=== PATIENT | female | born 1990 | race African-American/Black ===

== ENCOUNTER 2016-03-30 14:35 | Emergency (ER) | payer OTHER ==
[~2016-03-30] VITALS: Ht 152.4 cm; Wt 47.0 kg
[2016-03-30 15:53] LABS: HEMATOCRIT 41.5 % (36.0-46.0); MCH 29.5 PG (29.0-34.0); MCHC 34.9 G/DL (30.0-36.0); MCV 84.5 FL (83-99); MEAN PLAT.VOLUME 11.3 uM^3 (9.5-12.4); PLATELET COUNT 251 K/uL (156-360); RBC DIS.WIDTH-CV 14.5 % (11.8-14.6); RBC DIS.WIDTH-SD 44.3 % (39-53); RED BLOOD COUNT 4.91 M/uL (3.80-5.20); WHITE BLOOD COUNT 5.9 K/uL (4.1-10.2)
[2016-03-30 16:02] LABS: CHLORIDE 109 mEq/L (99-109); POTASSIUM 3.6 mEq/L (3.7-5.4); SODIUM 140 mEq/L (136-147)
[2016-03-30 16:04] LABS: GLUCOSE 96 mg/dL (70-99)
[2016-03-30 16:05] LABS: ANION GAP 12 MEQ/L (2-14)
[2016-03-30 16:06] LABS: TOTAL BILIRUBIN 0.8 mg/dL (0.0-1.0)
[2016-03-30 16:08] LABS: ALKALINE PHOSPHATASE 47 IU/L (3-129)
[2016-03-30 16:09] LABS: GFR ESTIMATE (CALCULATED) > 59 mL/min/; UREA NITROGEN (BUN) 10 mg/dL (9-23)
[2016-03-30 16:17] LABS: QUANTITATIVE HCG < 4.0 MIU/ML
[2016-03-30] MEDS ORDERED: ZOFRAN ODT4 MG PO (17:59)
[2016-03-30 18:33] VITALS: BP 116/71
== END 2016-03-30 18:35 | disposition home or self-care (01) ==
LOC: EME 14:35
DX: K52.9 Noninfective gastroenteritis and colitis, unspecified (principal); F17.200 Nicotine dependence, unspecified, uncomplicated
CPT/HCPCS: 80053; 81003; 84443; 84702; 85027; 99281; 99285; J1200; J2765; J7030